=== PATIENT | male | born 1990 | race African-American/Black ===

== ENCOUNTER 2016-11-28 00:08 | Emergency (ER) | payer SELFPAY ==
[~2016-11-28] VITALS: Ht 172.7 cm; Wt 75.0 kg
[2016-11-28 00:12] VITALS: BP 140/90; PULSE 58; RESP 16; TEMP 98.6; O2SAT 100
[2016-11-28] MEDS ORDERED: PRED20 PO (00:34)
[2016-11-28] MEDS ORDERED: ALBUAER3 INH (00:34)
--- NOTE | 2016-11-28 00:40 | PD ---
HPI Chief Complaint: ENT Complaint Time Seen by Provider: 00:30 Travel History International Travel<30 days: No Contact w/Intl Traveler<30days: No Traveled to known affect area: No History of Present Illness HPI 26-year-old black male presents from department with complaints of cough and congestion. He states that he has been exposed to black mold at work for the past week and a half. 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 He has noted since then having respiratory issues. He has had congestion, sore throat, cough and some pleuritic chest wall pain. He states that he has episodes of coughing which nearly causes him to vomit at times. He does wear a respirator at work but does not feel that is sufficient. He denies any fever or chills. No abdominal pain or urinary symptoms. Symptoms are [id number]. No alleviating factors. PFSH Past Medical History Medical History: Denies Significant Hx Diminished Hearing: No Immunizations Current: Yes Tetanus Vaccination: < 5 Years Past Surgical History Abdominal Surgery: Yes (umbilical hernia repair) Social History Alcohol Use: No Tobacco Use: No Substance Use: No Allergies-Medications (Allergen,Severity, Reaction): Coded Allergies: No Known Allergies (Verified , 11/28/16) Reported Meds & Prescriptions Reported Meds & Active Scripts Active Proair Hfa 8.5 GM Inh (Albuterol Sulfate) 90 Mcg/Act Aer 2 Puff INH Q4-6H PRN 108 mcg/actuation Prednisone 20 Mg Tab 20 Mg PO BID 5 Days Review of Systems Except as stated in HPI: all other systems reviewed are Neg Physical Exam Narrative GENERAL: Well-developed, well-nourished in no acute distress. Nontoxic appearing. HEAD: Normocephalic, atraumatic. EYES: Pupils equal round and reactive. Extraocular motions intact. No scleral icterus. No injection or drainage. ENT: TMs clear without erythema. The external auditory canals clear. Nose: clear . Posterior pharynx is pink and moist. No tonsillar edema or exudate. Uvula midline. Airway patent. NECK: Trachea midline.Supple, nontender, moves head freely. No central bony tenderness or spasm. CARDIOVASCULAR: Regular rate and rhythm without murmurs, gallops, or rubs. RESPIRATORY: Clear to auscultation. Breath sounds equal bilaterally. No wheezes , rales, or rhonchi. GASTROINTESTINAL: Abdomen soft, non-tender, nondistended. No hepato-splenomegaly , or palpable masses. No guarding. EXTREMITIES: No clubbing, cyanosis, or edema. No joint tenderness, effusion, or edema noted. BACK: Nontender without deformity or crepitance. No flank tenderness. Data Data Last Documented VS Vital Signs Date Time Temp Pulse Resp B/P (MAP) Pulse Ox O2 Delivery O2 Flow Rate FiO2 11/28/16 00:12 98.6 58 16 140/90 (107) 100 Orders Orders Prednisone (Deltasone) (11/28/16 00:45) MDM Medical Decision Making Medical Screen Exam Complete: Yes Emergency Medical Condition: Yes Medical Record Reviewed: Yes Differential Diagnosis MDM: High Differential diagnoses: Pneumonia, bronchitis, URI, reactive airway disease, mold exposure Narrative Course Patient appears to be having some reactive airway disease possibly secondary to the mold exposure. Patient will be given prednisone 40 mg by mouth here in the ER and prescription for prednisone and albuterol. Diagnosis Primary Impression: Reactive airway disease Qualified Codes: J45.909 - Unspecified asthma, uncomplicated Additional Impression: Mold exposure Patient Instructions: General Instructions Additional Instructions: Rest. Increase fluids. Tylenol and Advil. Avoid the mold as much as possible at work. Make sure your respirator fits properly. May consider using a hepa filter mask prednisone, and albuterol. Followup with your Dr. in one week. Return to the ER for any problems. Med/Other Pt SpecificInfo: Prescription(s) given Scripts Albuterol 8.5 GM Inh (Proair Hfa 8.5 GM Inh) 90 Mcg/Act Aer 2 PUFF INH Q4-6H Y for SHORTNESS OF BREATH, #1 INHALER 0 Refills 108 mcg/actuation Prov: Raleigh Willard MD 11/28/16 Prednisone (Prednisone) 20 Mg Tab 20 MG PO BID for 5 Days, #10 TAB 0 Refills Prov: Raleigh Willard MD 11/28/16 Disposition: 01 DISCHARGE HOME Condition: Stable Carlos Eduardo Philip Nov 28, 2016 00:40
[2016-11-28] MEDS ORDERED: predniSONE 20 MG TAB PO ONE (00:45)
== END 2016-11-28 00:49 | disposition home or self-care (01) ==
LOC: NEPK 00:08
DX: J45.909 Unspecified asthma, uncomplicated (principal); R09.81 Nasal congestion; R05 Cough; J02.9 Acute pharyngitis, unspecified; R07.89 Other chest pain; Z79.899 Other long term (current) drug therapy; Z77.120 Contact with and (suspected) exposure to mold (toxic)
CPT/HCPCS: 99284; J7512

== ENCOUNTER 2017-01-28 00:13 | Emergency (ER) | payer SELFPAY ==
[~2017-01-28] VITALS: Ht 175.3 cm; Wt 72.0 kg
[~2017-01-28 00:13] MED LIST: ALBUAER3 INH; PRED20 PO
[2017-01-28 00:15] VITALS: BP 130/87; PULSE 55; RESP 16; TEMP 97.8; O2SAT 99
[2017-01-28] MEDS ORDERED: MAGICADU2 SWISH-SPIT (00:27)
[2017-01-28] MEDS ORDERED: PENI500T PO (00:27)
[2017-01-28] MEDS ORDERED: IBUP1TAB7 PO (00:27)
--- NOTE | 2017-01-28 00:32 | PD ---
HPI Chief Complaint: Oral / Dental Pain or Problem Time Seen by Provider: 00:26 Travel History International Travel<30 days: No Contact w/Intl Traveler<30days: No Traveled to known affect area: No History of Present Illness HPI 26-year-old male presents for evaluation of dental pain. Symptom onset 1 month ago. Symptoms worsened today which prompted evaluation. Pain is throbbing, constant, worse when chewing. Denies fevers or chills. No other complaints. PFSH Past Medical History Medical History: Denies Significant Hx Diminished Hearing: No Immunizations Current: Yes Past Surgical History Abdominal Surgery: Yes (umbilical hernia repair) Social History Alcohol Use: No Tobacco Use: No Substance Use: No Allergies-Medications (Allergen,Severity, Reaction): Coded Allergies: No Known Allergies (Verified Adverse Reaction, Unknown, 01/28/17) Reported Meds & Prescriptions Reported Meds & Active Scripts Active Ibuprofen 800 Mg Tab 800 Mg PO Q6HR PRN Magic Mouthwash Adult Liq (Multi-Ingredient Mouthwash/Gargle) 120 Ml Susp 10 Ml SWISH-SPIT ACHS Each 5mL contains: Nystatin 200,000units, Diphenhydramine 4.25mg, Viscous Lidocaine 10mg, Hamilton syrup 0.8 mL Penicillin V Potassium 500 Mg Tab 500 Mg PO Q8H 10 Days Review of Systems General / Constitutional: No: Fever, Chills HENT: Positive: Dental Difficulties Physical Exam Narrative GENERAL: Well-nourished male in no acute distress SKIN: Warm and dry. HEAD: Atraumatic. Normocephalic. EYES: Pupils equal and round. No scleral icterus. No injection or drainage. ENT: No nasal bleeding or discharge. Mucous membranes pink and moist. Right maxillary second and third molars are decayed and tender to palpation. There is no gingival edema, no facial edema, no trismus. NECK: Trachea midline. No JVD. No lymphadenopathy or submandibular edema CARDIOVASCULAR: Regular rate and rhythm. No murmur appreciated. RESPIRATORY: No accessory muscle use. Clear to auscultation. Breath sounds equal bilaterally. Data Data Last Documented VS Vital Signs Date Time Temp Pulse Resp B/P (MAP) Pulse Ox O2 Delivery O2 Flow Rate FiO2 01/28/17 00:27 20 01/28/17 00:15 97.8 55 130/87 (101) 99 MDM Medical Decision Making Medical Screen Exam Complete: Yes Emergency Medical Condition: Yes Medical Record Reviewed: Yes Differential Diagnosis Dental caries, pulpitis, pericoronitis, periodontal abscess Narrative Course Physical examination is consistent with dental caries. Stable for discharge, outpatient follow-up with dentist. Diagnosis Primary Impression: Dental caries Additional Instructions: Medication as prescribed. Avoid tobacco products. Follow-up with a dentist for definitive therapy. Return for any emergent medical conditions. Med/Other Pt SpecificInfo: Prescription(s) given Scripts Ibuprofen (Ibuprofen) 800 Mg Tab 800 MG PO Q6HR Y for PAIN, #40 TAB 0 Refills Prov: Michele Coreas MD 01/28/17 Wtrhssfn-Wuyxlsqjstubojx-Nurmmrylg Liq (Magic Mouthwash Adult Liq) 120 Ml Susp 10 ML SWISH-SPIT ACHS for Mouth sores, #120 ML 1 Refill Each 5mL contains: Nystatin 200,000units, Diphenhydramine 4.25mg, Viscous Lidocaine 10mg, Hamilton syrup 0.8 mL Prov: Michele Coreas MD 01/28/17 Penicillin V Potassium (Penicillin V Potassium) 500 Mg Tab 500 MG PO Q8H for Infection for 10 Days, #30 TAB 0 Refills Prov: Michele Coreas MD 01/28/17 Disposition: 01 DISCHARGE HOME Condition: Stable Saurabh Nunes Jan 28, 2017 00:32
== END 2017-01-28 00:52 | disposition home or self-care (01) ==
LOC: NEPD 00:13
DX: K02.9 Dental caries, unspecified (principal); Z79.899 Other long term (current) drug therapy
CPT/HCPCS: 99284